=== PATIENT | female | born 1950 | race Caucasian/White ===

== ENCOUNTER 2021-09-28 05:04 | Observation (INO) ==
--- NOTE | 2021-08-25 15:35 | PAT Medication Instructions ---
Medication Instructions Date of Service August 25, 2021 Home Medications aspirin 81 mg capsule 81 mg PO QAM calcium 500 mg tablet 500 mg PO QAM carvedilol 25 mg tablet 25 mg PO BID escitalopram oxalate 10 mg tablet 10 mg PO QAM levothyroxine 100 mcg tablet (Levoxyl) 100 mcg PO QAM magnesium 500 mg tablet 15 mg PO QAM pantoprazole 40 mg tablet,delayed release 40 mg PO BID potassium 99 mg tablet 99 mg PO QAM spironolactone 25 mg tablet 25 mg PO QAM valsartan 320 mg-hydrochlorothiazide 12.5 mg tablet 1 tab PO QAM DO NOT take the morning of surgery calcium 500 mg tablet 500 mg PO QAM magnesium 500 mg tablet 15 mg PO QAM potassium 99 mg tablet 99 mg PO QAM spironolactone 25 mg tablet 25 mg PO QAM valsartan 320 mg-hydrochlorothiazide 12.5 mg tablet 1 tab PO QAM Take morning of surgery With a small sip of water, OTHERWISE NOTHING TO EAT OR DRINK AFTER MIDNIGHT: aspirin 81 mg capsule 81 mg PO QAM (unless surgeon directed otherwise) carvedilol 25 mg tablet 25 mg PO BID escitalopram oxalate 10 mg tablet 10 mg PO QAM levothyroxine 100 mcg tablet (Levoxyl) 100 mcg PO QAM pantoprazole 40 mg tablet,delayed release 40 mg PO BID Take evening before surgery carvedilol 25 mg tablet 25 mg PO BID pantoprazole 40 mg tablet,delayed release 40 mg PO BID Other Notes If you have any questions please call us at [phone] or [phone] or [phone] or [phone]
--- NOTE | 2021-08-30 14:59 | Anesthesiology Consultation ---
Date of Service August 30, 2021 Assessment & Plan (1) Encounter for pre-operative examination: - COVID screening: Per assessment on 08/30: No known COVID-19 positive contacts or current COVID-19 related symptoms. Travel screen negative. Patient vaccinated. Surgeon arranging preop COVID testing. Awaiting results. - Chlorhexidine allergy: hives. No wipes given at PAT visit* Chart Review Chart Review: Acceptable Risk for Surgery and Patient seen in Pre Admission Testing Teaching & Discussion Pre-Anesthesia Teaching/Discussion Notes: Instructed NPO after midnight before surgery,except medications with 15 cc of water. Medication instructions provided according to the [facility] guidelines. History Surgery Operation Date: 09/28/21 16:10 Proposed Procedures p Right Total Knee Arthroplasty - Harshil Colunga DO Height/Weight Height: 4 ft 11 in Weight: 96.7 kg Allergies Allergy/AdvReac Type Severity Reaction Status Date / Time benzonatate Allergy Anaphylaxis Verified 08/25/21 13:49 [From Flor Panchal] chlorhexidine Allergy Hives Verified 08/25/21 13:49 Penicillins Allergy hives, Verified 08/25/21 13:49 difficulty breathing morphine AdvReac Vomiting Verified 08/25/21 13:49 Medications Home Medications Medication Instructions Recorded Confirmed Last Taken aspirin 81 mg capsule 81 mg PO QAM 08/25/21 08/25/21 Unknown calcium 500 mg tablet 500 mg PO QAM 08/25/21 08/25/21 Unknown carvedilol 25 mg tablet 25 mg PO BID 08/25/21 08/25/21 Unknown escitalopram oxalate 10 mg tablet 10 mg PO QAM 08/25/21 08/25/21 Unknown levothyroxine 100 mcg tablet 100 mcg PO QAM 08/25/21 08/25/21 Unknown (Levoxyl) magnesium 500 mg tablet 15 mg PO QAM 08/25/21 08/25/21 Unknown pantoprazole 40 mg tablet,delayed 40 mg PO BID 08/25/21 08/25/21 Unknown release potassium 99 mg tablet 99 mg PO QAM 08/25/21 08/25/21 Unknown spironolactone 25 mg tablet 25 mg PO QAM 08/25/21 08/25/21 Unknown valsartan 320 1 tab PO QAM 08/25/21 08/25/21 Unknown mg-hydrochlorothiazide 12.5 mg tablet Past Medical History Medical History Allergy to chlorhexidine GERD (gastroesophageal reflux disease) occasional Hearing deficit B/L FERNANDEZ Hiatal hernia HTN (hypertension) Hypothyroidism Hx hyperthyroidism s/p radiation/thyroidectomy Morbid obesity Osteoarthritis Sleep apnea CPAP (compliant) Exercise / Class Metabolic Activity III < 4 Walking/Shop/Light housework Past Family History Family History Other No family history of adverse response to anesthesia Past Surgical History Surgical History History of appendectomy History of History of cardiac catheterization 15 years ago (PH) > no stents History of carpal tunnel release of both wrists History of cataract surgery History of cervical spinal surgery ROM WNL History of cholecystectomy History of colonoscopy History of D&C History of esophageal surgery History of esophagogastroduodenoscopy (EGD) History of left knee replacement History of parathyroidectomy History of thyroidectomy History of total abdominal hysterectomy and bilateral salpingo-oophorectomy History of umbilical hernia repair Past Anesthesia History No Hx of Anesthesia Complications and No Family Hx of Anesthesia Complications History of PONV No Hx of PONV and No Hx of Motion Sickness Social History Smoking Status: Never smoker Do You Dip or Chew Tobacco: No Hx Alcohol Use: Yes alcohol intake frequency: holidays/special occasions only Hx Substance Use: No substance use type: does not use Review of Systems Patient denies chest pain, shortness of breath, fever, chills, cough, wheezing, palpitations. Physical Exam Vital Signs VITALS BP 138/82 P 79 TEMP SP02 97%RA RESP 18 PHYSICAL Full cervical extension range of motion. Full TMJ range of motion. TMD 3 finger breaths (difficult to palpate) Mallampati Score 1 Dentition: intact Lungs: clear throughout to auscultation Cardiac: regular rate and rhythm, no murmurs noted Spine: normal Carotid arteries: negative bruit Extremities: no edema Short, thick neck Lab Results Anesthesia Preop Results Results Anesthesia Widget: WBC 7.55 K/uL (4.8-10.8) 08/30/21 Hgb 13.1 g/dL (12.0-16.0) 08/30/21 Hct 40.5 % (37-47) 08/30/21 Plt 337 K/uL (130-400) 08/30/21 Na 138 mmol/L (136-145) 08/30/21 K 4.7 mmol/L (3.5-5.1) 08/30/21 Cl 102 mmol/L (98-107) 08/30/21 CO2 27 mmol/L (21-32) 08/30/21 BUN 15 mg/dl (6-23) 08/30/21 Creat 1.05 mg/dl (0.6-1.2) 08/30/21 Glucose Level 88 mg/dl (70-99(Fasting)) 08/30/21 PT 10.2 Seconds (9.0-12.0) 08/30/21 PTT 23.9 Seconds (21.0-31.0) 08/30/21 INR 1.0 (0.9-1.1) 08/30/21 HA1c 6.4 % (4.5-5.6) H 08/30/21 Urine Color Yellow 08/30/21 Urine Appearance Clear (Clear) 08/30/21 Urine pH 5.5 (4.5-7.5) 08/30/21 Urine Specific [place] 1.021 (1.000-1.030) 08/30/21 Urine Protein Negative (Negative) 08/30/21 Urine Glucose (UA) Negative (Negative) 08/30/21 Urine Ketones Negative (Negative) 08/30/21 Urine Blood Negative (Negative) 08/30/21 Urine Nitrite Negative (Negative) 08/30/21 Urine Bilirubin Negative (Negative) 08/30/21 Urine Urobilinogen Negative (Negative) 08/30/21 Urine Leukocyte Esterase 1+ (Negative) H 08/30/21 Urine WBC (Auto) 10-30 /hpf (0-5) H 08/30/21 Urine RBC (Auto) 0-4 /hpf (0-4) 08/30/21 Urine Hyaline Casts (Auto) 1-5 /lpf (0-5) 08/30/21 Urine Epithelial Cells (Auto) >30 /lpf (0-5) H 08/30/21 Urine Bacteria (Auto) Negative (Negative) 08/30/21 Blood Type O Positive 08/30/21 Antibody Screen NEGATIVE 08/30/21 Testing Electrocardiogram Date: 08/30/21 NSR at 66bpm. NS ST/TWA. Chest X-Ray Date: 08/30/21 FINDINGS: Lung volumes are normal. Incidental note is made of an anterior cervical spine fusion. Moderate cardiomegaly is present. There is no evidence for pulmonary edema. No consolidation to suggest pneumonia. Mild elevation/eventration of the right hemidiaphragm is present IMPRESSION: No acute cardiopulmonary findings. Cardiomegaly. Echocardiogram Date: 07/04/21 EF 60%. No regional wall motion abnormality. Mild LAD. No significant valvular disease. Stress Test Date: 01/06/20 Type: nuclear Myocardial perfusion imaging: Normal. No evidence of ischemia or prior infarction. LVEF 75%. LV global systolic function is depressed. Other Testing Six minute walk test (07/05/21) 255 meters walked (walked continuously on RA) Pre test: HR 67, SaO2 95%, BP 156/70, Dyspnea 2 (scale 0-10) Post test: HR 66, SaO2 96%, BP 148/79, Dyspnea 2
--- NOTE | 2021-09-12 13:57 | History & Physical Report ---
Date of Service September 12, 2021 date of surgery: 09/28/21 Procedure: Right Total Knee Arthroplasty Surgeon: Harshil Colunga Assessment & Plan (1) Arthritis of right knee: Plan: Further care discussed with patient and at this point in time has failed conservative measures and would like to proceed with a right total knee replacement. Plan on discharge will be home with home health physical therapy. DVT prophylaxiswith TEDs, SCDs and will also place on aspirin 81 mg p.o. b.i.d. for a month postop. Patient will have follow up appointment in our office two weeks post op for staple/suture removal and re-evaluation. Patient otherwise has no other questions or concerns. The risks and benefits have been discussed including, but not limited to, risk of infection, nerve injury, stiffness, loss of motion, failure to improve, etc. Reasonable outcomes and options of treatment were discussed. An explanation of appropriate alternatives to the procedure that may be advantageous were discussed and their risks and benefits, as well as the risks and benefits of not proceeding with treatment. I offered to answer any additional inquiries concerning the treatment involved. All the patient's questions were answered. The patient is agreeable, understanding of the treatment plan and alternatives, and wishes to proceed with the treatment plan. History of Present Illness Chief Complaint: Right knee pain Primary Care Provider: NO PCP Ninfa is a 70 year old female who complains of right knee pain, presents for pre-op evaluation prior to a Right total knee replacement. she complains of pain and decreased range of motion. Currently the patient states that the symptoms are moderate-severe and rated as 6/10. Her pain is described as aching, sharp and throbbing and occurs continuously. The symptoms are aggravated by ascending stairs, daily activities, first steps while awake walking. Prior NSAIDs include Aleve and IBU. she had prior viscosupplementation injection without much relief. Allergies Allergy/AdvReac Type Severity Reaction Status Date / Time benzonatate Allergy Anaphylaxis Verified 08/25/21 13:49 [From Flor Panchal] chlorhexidine Allergy Hives Verified 08/25/21 13:49 Penicillins Allergy hives, Verified 08/25/21 13:49 difficulty breathing morphine AdvReac Vomiting Verified 08/25/21 13:49 Home Medications Medication Instructions Recorded Confirmed Type aspirin 81 mg capsule 81 mg PO QAM 08/25/21 08/25/21 History calcium 500 mg tablet 500 mg PO QAM 08/25/21 08/25/21 History carvedilol 25 mg tablet 25 mg PO BID 08/25/21 08/25/21 History escitalopram oxalate 10 mg tablet 10 mg PO QAM 08/25/21 08/25/21 History levothyroxine 100 mcg tablet 100 mcg PO QAM 08/25/21 08/25/21 History (Levoxyl) magnesium 500 mg tablet 15 mg PO QAM 08/25/21 08/25/21 History pantoprazole 40 mg tablet,delayed 40 mg PO BID 08/25/21 08/25/21 History release potassium 99 mg tablet 99 mg PO QAM 08/25/21 08/25/21 History spironolactone 25 mg tablet 25 mg PO QAM 08/25/21 08/25/21 History valsartan 320 1 tab PO QAM 08/25/21 08/25/21 History mg-hydrochlorothiazide 12.5 mg tablet Past Med/Surg History Medical History Allergy to chlorhexidine GERD (gastroesophageal reflux disease) occasional Hearing deficit B/L FERNANDEZ Hiatal hernia HTN (hypertension) Hypothyroidism Hx hyperthyroidism s/p radiation/thyroidectomy Morbid obesity Osteoarthritis Sleep apnea CPAP (compliant) Surgical History History of appendectomy History of History of cardiac catheterization 15 years ago (PH) > no stents History of carpal tunnel release of both wrists History of cataract surgery History of cervical spinal surgery ROM WNL History of cholecystectomy History of colonoscopy History of D&C History of esophageal surgery History of esophagogastroduodenoscopy (EGD) History of left knee replacement History of parathyroidectomy History of thyroidectomy History of total abdominal hysterectomy and bilateral salpingo-oophorectomy History of umbilical hernia repair Family History Other No family history of adverse response to anesthesia Social History Smoking Status: Never smoker Second Hand Exposure: No; Hx Alcohol Use: Yes Hx Substance Use: No Preferred Language: Panamanian Communication Ability: Effective Biophysics Scientist Required: No Beliefs That Will Affect Care: None Current Living Situation: Spouse Feels Safe at Home: Yes Assistive Devices: Glasses and Hearing Aid - Bilateral Review of Systems Review of Systems: All systems reviewed & are unremarkable except as noted in HPI & below Constitutional: no fever, no chills and no sweats Respiratory: no cough and no dyspnea Cardiovascular: no chest pain, no dyspnea and no orthopnea Gastrointestinal: no abdominal pain, no nausea and no vomiting Musculoskeletal: as per Subjective / HPI Physical Exam Physical Exam: HT: 4ft 11in WT: 96.7kg Constitutional: WD/WN, vitals as above no acute distress Respiratory: normal respiratory effort, lungs clear to auscultation no respiratory distress, no labored breathing and does not use accessory muscles Cardiovascular: RRR, no murmur, no edema Gastrointestinal (Abdomen): normal bowel sounds, soft, nontender, no hepatosplenomegaly Musculoskeletal: Knee: + knee abnormal to inspection (RIGHT KNEE: ), + effusion (+1 effusion), + limited ROM of knee (ROM 0/3/110), + knee ROM with crepitation, + joint line tenderness (medial joint line) and + Blake's sign positive; no deformity, no skin erythema, no ecchymosis, no valgus laxity, no varus laxity, anterior drawer test negative, Prabhu's sign negative and pivot shift test negative Results & Data Results & Data ([facility]) Diagnostic Findings Right Knee X-ray: Right knee series showing advanced degenerative changes to the right knee, narrowing of the medial compartment and patello-femoral joint with patellar spurring noted, findings showing joint space narrowing of the medial compartment and patello-femoral joint, osteophyte formation and subchondral sclerosis noted. overall varus alignment. no acute bony pathology noted.
[~2021-09-28 05:04] MED LIST: ALLERGY Noted to ORDERED Medication SCH
[2021-09-28] MEDS ORDERED: FAMOTIDINE 20 MG TAB PO SCH (06:00)
[2021-09-28] MEDS ORDERED: CeleBREX 200 MG CAP PO SCH (06:00)
[2021-09-28] MEDS ORDERED: GABAPENTIN 300 MG CAP PO SCH (06:00)
[2021-09-28] MEDS ORDERED: METOCLOPRAMIDE HCL 10 MG TABLET PO SCH (06:00)
[2021-09-28] MEDS ORDERED: ACETAMINOPHEN 500 MG TAB PO SCH (06:00)
[2021-09-28] MEDS ORDERED: ROPIVACAINE 0.5% HCL/PF 150 MG, BUPIVACAINE 0.75% MPF 20 ML, EPINEPHrine 30MG/30ML (OR ... INFIL SCH (06:00)
[2021-09-28] MEDS ORDERED: dexAMETHasone 4 MG TAB PO SCH (06:00)
[2021-09-28] MEDS ORDERED: ceFAZolin 2000MG 2,000 MG/15 ML SYR IV SCH (06:00)
[2021-09-28] MEDS ORDERED: LR 500ML BOLUS, THEN 15ML/HR IV SCH (06:00)
[2021-09-28] MEDS ORDERED: TRANEXAMIC ACID 1,000 MG **IV Pre-op IV SCH (06:00)
[2021-09-28] MEDS ORDERED: TRANEXAMIC ACID 1,000 MG **IV Intra-op IV SCH (06:00)
[2021-09-28] MEDS ORDERED: ROPIVACAINE 0.5% 5 MG/ML 30 ML VIAL ONE (06:19)
[2021-09-28] MEDS ORDERED: EPINEPHrine INJ 1 MG/ML AMP ONE (06:19)
[2021-09-28] MEDS ORDERED: BUPIVACAINE 0.5 % 5 MG/1 ML PF 10ML VIAL ONE (06:19)
[2021-09-28] MEDS ORDERED: MIDAZOLAM HCL 1 MG/ML 2ML VIAL ONE ×2 (06:39)
[2021-09-28] MEDS ORDERED: fentaNYL citrate 100 MCG/2 ML VIAL ONE (06:39)
[2021-09-28] MEDS ORDERED: ORTHO JOINT ANESTHETIC ONE (06:41)
[2021-09-28] MEDS ORDERED: CLINDAMYCIN 600 MG/D5W 50 ML BAG IV ONE (07:04)
--- NOTE | 2021-09-28 07:05 | History & Physical Bridge Note ---
Date of Service September 28, 2021 History & Physical Bridge Note I have examined the patient, reviewed the History & Physical and in the interval since the performance of the History & Physical I have noted the following changes of clinical significance: no changes noted
[2021-09-28] MEDS ORDERED: ePHEDrine sulfate 50 MG/ML SYR ONE (07:43)
[2021-09-28] MEDS ORDERED: PROPOFOL IV EMULSION 10 MG/ML 20 ML VIAL IV ONE (07:43)
[2021-09-28] MEDS ORDERED: ePHEDrine sulfate 50 MG/ML AMP IV PRN (08:30)
[2021-09-28] MEDS ORDERED: ATROPINE SULFATE 0.1 MG/ML 10ML SYR IV PRN (08:30)
--- NOTE | 2021-09-28 08:37 | Operative Report ---
Post Operative Report Pre & Post Diagnosis Operation Date: 09/28/21 07:00 Pre-Op Diagnosis: Right Knee Osteoarthritis morbid obesity Post-Op Diagnosis: Right Knee Osteoarthritis Morbid obesity I identified the patient and participated in the time-out.: Yes Procedure Operation Date: 09/28/21 07:00 Actual Procedures p Right Total Knee Arthroplasty(Right) utilizing [employer] journey 2 patient matched total knee arthroplasty size 3 femur to tibia 13 polythirty 2 oval patella Harshil Colunga DO Surgeon Harshil Colunga DO Pipe Machine Operator Rob KNOTT Estimated Blood Loss 5 Findings Consistent with Post-Op Diagnosis Patient presents with severe end-stage tricompartmental degenerative joint disease nonresponse to conservative management patient presented with a morbidly obese obesity with severe end-stage varus DJD with subchondral bone loss subchondral cystic changes eburnated [id number] with a moderate to large effusion Specimens Bone and cartilage Drains Medium bore Hemovac Anesthesia Type MAC Spinal Regional Complications none Disposition Accompanied Patient To Recovery: No Disposition: Recovery Room Indications Patient presents with severe end-stage tricompartmental degenerative joint disease with the above intraoperative findings noted patient is failed attempted conservative management physical therapy anti-inflammatories relative rest activity modification corticosteroid injection weight loss Description of Procedure After proper prepping and draping of the Right lower extremity anterior midline incision was made over the region of the extensor extensor mechanism after meticulous hemostasis was obtained and maintained in subcutaneous tissues a medial parapatellar incision was made The patella was subluxed lateralward the medial lateral gutter were cleaned from any hypertrophic synovitis and scar tissue of the distal femoral block was placed and the distal femoral osteotomy cut was made subsequently the chamfers anterior and posterior osteotomy cuts were made utilizing the 4-in-1 block the tibia was subsequently subluxed anteriorward medial and ateral meniscal remnants were excised in their entirety remnants of the anterior and posterior cruciate ligaments were excised in their entirety excellent exposure of the proximal tibia was obtained the tibial osteotomy guide was placed on the proximal tibial osteotomy cut was made once again the knee was irrigated with copious amounts of sterile saline solution the patella was subsequently everted lateralward thickened scar tissue around the patella was removed the patella was subsequently cut utilizing a freehand technique and was drilled prepared for final preparation and placement of patella socially flexion-extension gaps were checked and the equal and symmetric trials were placed to the appropriate femoral and tibial trials with poly-spacer being placed for equal flexion and extension gaps and full range of motion including extension to 0 and flexion to 140 the trial components after having been taken to recovery range of motion was subsequently removed meticulous hemostasis was obtained and maintained subsequently a knee block injection of joint cocktail including ropivacaine 0.5% 150 mg. Bupivacaine 0.5% epinephrine 1-200,030 mL's toradol 30 mg dexamethasone 4 mg ketamine 10 mg clonidine 100 micrograms normal saline solution 30 mg was infiltrated into the soft tissues of the posterior knee medial lateral gutters and periosteal synovium special attention was paid to protect neurovascular structures at all times subsequently trial components having been removed the knee was irrigated with sterile saline solution. debris was removed the proximal tibia was subsequently prepared and was made ready for the placement of the tibial component tibial component was also cemented and tamped into position the femoral component was subsequently placed and cemented in the position the patellar component was subsequently cemented in position because hemostasis once again obtained and maintained wound having been thoroughly irrigated with debridement and debridement lavage was performed as well as a medial parapatellar incision closed with #1 Vicryl in interrupted fashion subcutaneous was closed with #2 Vicryl skin was closed with skin clips. PA-C was necessary for prepping and drapping as well as wound closure of deep fascia Sub cutaneous tissue and skin and was necessary for the case. A sterile compressive dressing was placed patient was taken to recovery in stable condition of report dictated by Keanu I attest to the content of the Intraoperative Record and any orders documented therein. Any exceptions are noted below.Due to the complex nature of the procedure, the entire surgery was performed with the operational assistance of Rob Rg patient is 96.2 kg with a BMI of 42.8 The patient's habitus did contribute to significant technical difficulty requiring extra time. Additional help was necessary in order to position the patient safely. The use of specialized (longer, deeper) retractors and/or instruments were needed. Due to this, the procedure took 15 minutes longer than the standard total knee arthroplasty.". The assistant to the dean, under direct supervision, was involved in the actual performance of all aspects of the surgical procedure including hemostasis, tissue retraction and incision, instrument management, patient positioning, and wound closure. I attest to the content of the Intraoperative Record and any orders documented therein. Any exceptions are noted below.
--- NOTE | 2021-09-28 10:02 | XRay Report ---
TWO VIEWS RIGHT KNEE CLINICAL HISTORY: Postoperative examination. FINDINGS: AP and crosstable lateral portable views of the right knee are obtained. A right knee arthr oplasty is in near anatomic alignment. There has been undersurface remodeling of the patella. No acut e fracture is seen. There are expected postoperative changes around the knee including a surgical clover in, soft tissue edema, and subcutaneous gas. IMPRESSION: Expected postoperative changes status post right knee arthroplasty. No acute fracture is seen. ACT 112: Negative or not required by law. Electronically signed by: Aurelio Lee M.D. 09/28/2021 10:00 AM
--- NOTE | 2021-09-28 10:05 | Anesthesiology Progress Note ---
Date of Service September 28, 2021 Anesthesia Post Procedure Vital Signs Vital Signs: Temp Pulse Pulse Resp BP Pulse Ox 09/28/21 10:00 55 L 16 115/76 95 09/28/21 09:50 62 17 135/83 97 09/28/21 09:40 62 14 133/72 100 09/28/21 09:30 59 L 17 117/78 100 09/28/21 09:20 36.7 C 60 16 150/82 H 99 09/28/21 05:41 36.8 C 56 L 18 140/72 96 Transfer of Care Handoff Completed per policy Notes Mental Status: alert / awake / arousable Patient Amnestic to Procedure: Yes Nausea / Vomiting: adequately controlled Pain: adequately controlled Airway Patency, RR, SpO2: stable & adequate BP & HR: stable & adequate Hydration State: stable & adequate Neuraxial Anesthesia: was administered and sensory block is resolving Anesthetic Complications: no major complications apparent
[2021-09-28] MEDS ORDERED: ONDANSETRON INJ 2 MG/ML 2 ML VIAL IV PRN (11:22)
[2021-09-28] MEDS ORDERED: diphenhydrAMINE 50 MG/ML VIAL IV PRN (11:22)
[2021-09-28] MEDS ORDERED: HYDROmorphone INJ 0.5 MG/0.5 ML SYR IV PRN (11:22)
[2021-09-28] MEDS ORDERED: NALOXONE HCL 0.4 MG/1 ML VIAL/CARP IV PRN (11:22)
[2021-09-28] MEDS ORDERED: bisacodyL 10 MG SUPP PR PRN (11:22)
[2021-09-28] MEDS ORDERED: MAGNESIUM HYDROXIDE SUSP 30 ML UDC PO PRN (11:22)
[2021-09-28] MEDS: oxyCODONE HCL IR 5 MG TAB (IMMEDIATE RELEASE) PO PRN ×2 (12:23→20:01)
--- NOTE | 2021-09-28 13:24 | Hospitalist Progress Note ---
Date of Service September 28, 2021 Assessment & Plan (1) HTN (hypertension): Plan: BP reasonable, asymptomatic. will hold valsartan and HCTZ pending clear stability in volume status -- if BP stays reasonable (not low) and Hgb, BMP reasonable w AM labs - then can start tomorrow. (2) Sleep apnea: Plan: CPAP from home (3) Hypothyroidism: Plan: home dose of synthroid (4) DVT prophylaxis: Plan: per orthopedics (asa BID, SCDs) (5) Morbid obesity: Plan: w BMI 42.8 - likely contributory to DJD leading to TKA; hopefully with improved pain and mobility, she will be able to affect positive change in this regard. Admission and Anticipated Discharge Date Admission Date: September 28, 2021 Subjective seen post op consult for med management, s/p R TKA. feeling pretty good overall. a little bit of leg discomfort "as things are waking up" but no other complaints. being instructed on incentive spirometer as i enter the room. no cp no sob. no other complaints at all. bringing her CPAP device in. Review of Systems Review of Systems: All systems reviewed & are unremarkable except as noted in HPI & below Physical Exam Physical Exam: gen aaox3 pleasant nad heent nc at mmm cardio reg no r/m/g lungs cta b/l no r/r/w good effort skin no rashes no pallor or icterus abd soft nd nt no guarding/rebound ext no c/c/e no calf tenderness SCDs in place R leg wrapped, distally n/v intact. cn 2-12 grossly intact gross motor/sensory intact. good recent and remote recall normal mood and affect good judgement and insight. Results & Data Results & Data ([facility]) Vital Signs (Past 12 Hours) Vital Signs Temp Pulse Pulse Resp BP Pulse Ox 09/28/21 12:57 98.4 F 67 18 131/73 93 09/28/21 12:10 73 20 115/78 92 09/28/21 11:40 61 15 133/76 91 09/28/21 11:10 60 15 124/62 92 09/28/21 10:55 59 L 14 115/63 93 09/28/21 10:40 62 15 126/72 92 09/28/21 10:25 58 L 14 140/67 93 09/28/21 10:10 97.9 F 68 18 124/62 92 09/28/21 10:00 55 L 16 115/76 95 09/28/21 09:50 62 17 135/83 97 09/28/21 09:40 62 14 133/72 100 09/28/21 09:30 59 L 17 117/78 100 09/28/21 09:20 98.1 F 60 16 150/82 H 99 09/28/21 05:41 98.2 F 56 L 18 140/72 96 PG Care Time/CCT Total # of Minutes Spent Total Time Spent with Patient: Total time spent is greater than 50% in coordination of care (as documented) at patient's floor/unit and/or counseling patient: Coding Level of Care Code 84088 Subseq Hosp Care Lvl 2 Diagnoses HTN (hypertension) I10 Sleep apnea G47.30 Hypothyroidism E03.9 DVT prophylaxis Z29.9 Morbid obesity E66.01
[2021-09-28] MEDS: SODIUM CHLORIDE 0.9% 1000ML 1,000 ML IV SCH (13:27)
[2021-09-28] MEDS: ACETAMINOPHEN 500 MG TAB PO SCH ×2 (15:08→22:46)
[2021-09-28] MEDS: CLINDAMYCIN 600 MG in DEXTROSE 5% 50 ML IV SCH (19:56)
[2021-09-28] MEDS: DOCUSATE SODIUM 100 MG CAP PO SCH (19:58)
[2021-09-28] MEDS: ASPIRIN 81 MG ECTAB PO SCH (19:58)
[2021-09-28] MEDS: PANTOprazole 40 MG TAB PO SCH (19:58)
[2021-09-28] MEDS: carvediloL 25 MG TAB PO SCH (19:59)
[2021-09-28] MEDS ORDERED: SENNA 8.6 MG TAB PO SCH (21:00)
[2021-09-29] MEDS: CLINDAMYCIN 600 MG in DEXTROSE 5% 50 ML IV SCH (02:15)
[2021-09-29] MEDS: oxyCODONE HCL IR 5 MG TAB (IMMEDIATE RELEASE) PO PRN ×3 (02:19→14:18)
[2021-09-29] MEDS: SODIUM CHLORIDE 0.9% 1000ML 1,000 ML IV SCH (03:34)
[2021-09-29] MEDS ORDERED: CLINDAMYCIN/D5W 600 MG/50 ML BAG IV SCH (06:00)
[2021-09-29] MEDS: ACETAMINOPHEN 500 MG TAB PO SCH ×2 (06:03→14:17)
[2021-09-29] MEDS ORDERED: LEVOTHYROXINE SODIUM 100 MCG TABLET PO SCH ×2 (06:30→09:00)
[2021-09-29] MEDS: carvediloL 25 MG TAB PO SCH (07:38)
[2021-09-29] MEDS: DOCUSATE SODIUM 100 MG CAP PO SCH (07:40)
[2021-09-29] MEDS: PANTOprazole 40 MG TAB PO SCH (07:40)
[2021-09-29] MEDS: ASPIRIN 81 MG ECTAB PO SCH (07:40)
[2021-09-29] MEDS ORDERED: ESCITALOPRAM OXALATE 10 MG TAB PO SCH (09:00)
[2021-09-29] MEDS ORDERED: MAGNESIUM OXIDE 400 MG TAB PO SCH (09:00)
[2021-09-29] MEDS ORDERED: CALCIUM CARBONATE 1250MG TAB PO SCH (09:00)
[2021-09-29] MEDS ORDERED: VALSARTAN 80 MG TAB PO SCH (09:00)
[2021-09-29] MEDS ORDERED: POTASSIUM CHLORIDE 10 MEQ TABCR PO SCH (09:00)
[2021-09-29] MEDS ORDERED: hydroCHLOROthiazide 25 MG TAB PO SCH (09:00)
[2021-09-29] MEDS ORDERED: MULTIVITAMIN TAB PO SCH (09:00)
--- NOTE | 2021-09-29 09:01 | Orthopedic Progress Note ---
Date of Service September 29, 2021 Assessment & Plan (1) Arthritis of right knee: Plan: Postop day 1 PT/OT protocols. Weightbearing as tolerated. DVT prophylaxis-aspirin p.o. twice daily, SCDs, ROSE bennett. Pain management as written. Labs pending DC planning-patient is planning for home health services upon discharge. We will recheck on the patient later this morning to see how well her progress was with physical therapy and plan for possible discharge. Admission and Anticipated Discharge Date Admission Date: September 28, 2021 Subjective Postop day 1 Patient is lying in bed awake and alert. No complaints this morning. Pain is controlled. She states that she has not had her lab draws yet. Denies shortness of breath, chest pain, lightheadedness. She states she is hoping to go home today. Physical Exam Physical Exam: Dressings are clean, dry, and intact. Calves are soft and nontender. Neurovascular intact. Toes are mobile. She has good dorsiflexion and plantarflexion of the right foot and ankle. Minimal drainage from her Hemovac. Results & Data ([facility]) Vital Signs (Past 12 Hours) Vital Signs Temp Pulse Resp BP Pulse Ox 09/29/21 07:34 36.7 C 68 20 117/76 94 09/29/21 02:17 36.5 C 81 19 130/75 93 09/28/21 22:10 36.5 C 72 16 143/81 H 94
--- NOTE | 2021-09-29 09:01 | Hospitalist Progress Note ---
Date of Service September 29, 2021 Assessment & Plan (1) History of total knee arthroplasty: Plan: S/p right TKA on 09/[address] Colunga No perioperative complications Spinal anesthesia utilized. At this point, patient is meeting her therapy goals. Her pain is controlled and she is tolerating her pain medication without ill effects. Would advise continued incentive spirometry, PT/OT, continue pain management, and DVT prophylaxis X 14 days (drug, dose, duration at the discretion of primary team) (2) HTN (hypertension): Plan: BP currently 103/66 Diovan/HCTZ held today given spinal anesthesia utilized and risk of KATHY/hypotension Creatinine is slightly up to 1.2 (again received Decadron and Celebrex preoperatively) -- Would advise patient hold her Diovan/HCTZ today and tomorrow. Push fluids. Resume on Sunday (3) Sleep apnea: Plan: Continue utilization of CPAP (4) Hypothyroidism: Plan: Continue Synthroid as prior to hospitalization (5) DVT prophylaxis: Plan: Per primary team. Recommend DVT prophylaxis X 14 days (6) Morbid obesity: Plan: w BMI 42.8 - likely contributory to DJD leading to TKA; hopefully with improved pain and mobility, she will be able to affect positive change in this regard. Plan: At this point, patient is medically and hemodynamically stable. We will sign off but do not hesitate to reconsult should a problem arise. Thank you for allowing us to participate in the care of this patient Admission and Anticipated Discharge Date Admission Date: September 28, 2021 Subjective Patient seen on daily rounds today. She is POD #1 s/p right TKA. Pain is adequately controlled. Tolerating pain medication without ill effects. Meeting her therapy goals and has since been cleared for discharge by orthopedics. BP currently stable. Her Diovan HCTZ held this morning. WBC count elevated at 14 K today but did receive intraoperative steroids. Creatinine slightly elevated at 1.2 today but received perioperative Decadron/Celebrex. Review of Systems Review of Systems: All systems reviewed and are unremarkable except as noted in HPI and below Denies fevers, chills, headache, nasal congestion, sore throat, cough, chest pain, shortness of breath, palpitations, orthopnea, PND, abdominal pain, nausea, vomiting, diarrhea, constipation, dysuria, hematuria, frequency, back pain, joint pain or swelling, easy bruising or bleeding, skin lesions or rashes. Physical Exam Physical Exam: General: Resting comfortably in her bedside chair. NAD. HEENT: Head is AT/NC. Buccal mucosa is moist and pink Neck: No JVD. Negative hepatojugular reflex Cardiac: RRR without M/G/R Lungs: CTA without W/R/R Abdomen: Normoactive X4. Soft and nontender in all quadrants. Extremities: Demetrio wrap with beltran dressing and indwelling Hemovac to right knee. Distal pulses to the bilateral lower extremities are intact and symmetrical. Capillary refill +2. Negative Homans' sign. No calf tenderness. Neuro: A&O X4. Cranial nerves II through XII are grossly intact. No focal neuro deficits Skin: No obvious skin lesions or rashes Psych: Appropriate affect. Pleasant and cooperative Results & Data Results & Data ([facility]) Vital Signs (Past 12 Hours) Vital Signs Temp Pulse Resp BP Pulse Ox 09/29/21 07:34 36.7 C 68 20 117/76 94 09/29/21 02:17 36.5 C 81 19 130/75 93 09/28/21 22:10 36.5 C 72 16 143/81 H 94 Laboratory Results 09/29/21 09:10 09/29/21 09:10 PG Care Time/CCT Total # of Minutes Spent Total Time Spent with Patient: Total time spent is greater than 50% in coordination of care (as documented) at patient's floor/unit and/or counseling patient: Coding Level of Care Code 41556 Inpt Consult Level 4 Diagnoses HTN (hypertension) I10 Sleep apnea G47.30 Hypothyroidism E03.9 DVT prophylaxis Z29.9 Morbid obesity E66.01 History of total knee arthroplasty Z96.659
[2021-09-29 09:49] LABS: Hematocrit (blood only) 32.9 % (37-47); Mean Corpuscular Hemoglobin 30.2 pg (25-34); Mean Corpuscular Hgb Conc 33.4 g/dL (32-36); Mean Corpuscular Volume 90.4 fL (80-100); RDW Coefficient of Variation 13.8 % (11.5-14.5); RDW Standard Deviation 46.1 fL (36.4-46.3); Red Blood Count 3.64 M/uL (4.2-5.4); White Blood Count 14.06 K/uL (4.8-10.8)
[2021-09-29 09:50] LABS: Mean Platelet Volume 9.8 fL (7.4-10.4); Platelet Count 255 K/uL (130-400)
[2021-09-29 10:16] LABS: BUN Creatinine Ratio 20.8 (10-20); Calcium 7.7 mg/dl (8.5-10.1); Creatinine Clr Calc Pharmacy 43.2 ml/min; Est GFR (African American) 50.8 ml/min; Est GFR (Non-African American) 43.9 ml/min; Potassium 4.7 mmol/L (3.5-5.1)
[2021-09-30] MEDS ORDERED: LEVOTHYROXINE SODIUM 100 MCG TABLET PO SCH (06:30)
== END 2021-09-29 14:45 | disposition home health service (06) ==
LOC: PACUINP 05:04 → ASU 05:04 → 3E 12:57

== ENCOUNTER 2024-07-14 07:11 | Inpatient (IN) ==
--- NOTE | 2024-06-18 12:20 | PAT Medication Instructions ---
Medication Instructions Date of Service June 18, 2024 Home Medications aspirin 81 mg capsule 81 mg PO QAM calcium 500 mg tablet 500 mg PO QAM carvedilol 25 mg tablet 25 mg PO BID escitalopram oxalate 10 mg tablet 10 mg PO QAM levothyroxine 100 mcg tablet (Levoxyl) 100 mcg PO QAM magnesium 500 mg tablet 500 mg PO QAM pantoprazole 40 mg tablet,delayed release 40 mg PO BID potassium 99 mg tablet 99 mg PO QAM spironolactone 25 mg tablet 25 mg PO QAM valsartan 320 mg-hydrochlorothiazide 12.5 mg tablet 1 tab PO QAM metformin 500 mg tablet 500 mg PO QAM MEDICATION INSTRUCTIONS: ASK your prescriber and surgeon aspirin 81 mg capsule 81 mg PO QAM DO NOT take the morning of surgery magnesium 500 mg tablet 500 mg PO QAM potassium 99 mg tablet 99 mg PO QAM calcium 500 mg tablet 500 mg PO QAM spironolactone 25 mg tablet 25 mg PO QAM valsartan 320 mg-hydrochlorothiazide 12.5 mg tablet 1 tab PO QAM metformin 500 mg tablet 500 mg PO QAM Take morning of surgery With a small sip of water, OTHERWISE NOTHING TO EAT OR DRINK AFTER MIDNIGHT: carvedilol 25 mg tablet 25 mg PO BID pantoprazole 40 mg tablet,delayed release 40 mg PO BID escitalopram oxalate 10 mg tablet 10 mg PO QAM levothyroxine 100 mcg tablet (Levoxyl) 100 mcg PO QAM Take evening before surgery carvedilol 25 mg tablet 25 mg PO BID pantoprazole 40 mg tablet,delayed release 40 mg PO BID Other Notes If you have any questions please call us at [phone] or [phone] or [phone] or [phone]
--- NOTE | 2024-06-30 14:33 | Anesthesiology Consultation ---
Date of Service June 30, 2024 Assessment & Plan (1) Encounter for pre-operative examination: Plan - awaiting surgeon ordered medical clearance, Nury KNOTT. - check BSG am DOS. - chlorhexidine allergy: wipes not provided at PAT visit. Chart Review Chart Review: Pending: Refer to Additional Notes / Consult section and Patient seen in Pre Admission Testing Teaching & Discussion Pre-Anesthesia Teaching/Discussion Notes: Instructed NPO after midnight before surgery, except medications with 15 cc of water. Medication instructions provided according to the [facility] guidelines. History Surgery Operation Date: 07/14/24 10:05 Proposed Procedures p L3-S1 Decompression and Fusion, Spinal Cord Monitoring - Caleb Gudino, Height/Weight Height: 4 ft 11 in Weight: 92.4 kg Allergies Allergy/AdvReac Type Severity Reaction Status Date / Time benzonatate Allergy Severe Anaphylaxis Verified 06/18/24 09:38 [From Flor Panchal] latex Allergy Severe blistering, Verified 06/30/24 14:35 rash Penicillins Allergy Severe hives, Verified 06/18/24 09:38 difficulty breathing chlorhexidine Allergy Intermediate Hives Verified 06/18/24 09:38 morphine AdvReac Intermediate Vomiting Verified 06/18/24 09:38 Medications Home Medications Medication Instructions Recorded Confirmed Last Taken aspirin 81 mg capsule 81 mg PO QAM 08/25/21 06/18/24 09/21/21 calcium 500 mg tablet 500 mg PO QAM 08/25/21 06/18/24 Unknown carvedilol 25 mg tablet 25 mg PO BID 08/25/21 06/18/24 09/27/21 21:00 escitalopram oxalate 10 mg tablet 10 mg PO QAM 08/25/21 06/18/24 09/28/21 02:30 levothyroxine 100 mcg tablet 100 mcg PO QAM 08/25/21 06/18/24 09/28/21 02:30 (Levoxyl) magnesium 500 mg tablet 500 mg PO QAM 08/25/21 06/18/24 09/28/21 02:30 pantoprazole 40 mg tablet,delayed 40 mg PO BID 08/25/21 06/18/24 09/28/21 02:30 release potassium 99 mg tablet 99 mg PO QAM 08/25/21 06/18/24 09/28/21 02:30 spironolactone 25 mg tablet 25 mg PO QAM 08/25/21 06/18/24 09/28/21 02:30 valsartan 320 1 tab PO QAM 08/25/21 06/18/24 09/28/21 02:30 mg-hydrochlorothiazide 12.5 mg tablet metformin 500 mg tablet 500 mg PO QAM 06/18/24 06/18/24 Unknown atorvastatin 20 mg tablet (Lipitor) 20 mg PO QAM 06/30/24 06/30/24 Unknown multivit with minerals-iron 18 tab PO QAM 06/30/24 Unknown mg-folic ac 400 mcg-vit K 25 mcg tablet (Adults Multivitamin) tramadol 25 mg tablet 25 mg PO Q4H PRN Pain 06/30/24 06/30/24 Unknown Additional Notes: Patient was instructed to continue Lipitor and tramadol prn, cannot take multiv itamin day of surgery. This was written on provided medication instructions, she denied questions/concerns or additional medication changes. Past Medical History Medical History (Updated 06/30/24 @ 15:44 by Mary Anne Barnett PA-C) Allergy to chlorhexidine GERD (gastroesophageal reflux disease) controlled, stable per pt Hearing deficit B/L FERNANDEZ Hiatal hernia History of blood transfusion (~1974) History of esophageal dilatation early History of hyperthyroidism "had radiation tx" HTN (hypertension) controlled, stable per pt Hypothyroidism Osteoarthritis Prediabetes Sleep apnea CPAP compliant Patient denies h/o stroke, seizures, heart attack, heart failure, or blood clots/DVTs. Exercise / Class Metabolic Activity III < 4 Walking/Shop/Light housework (denies chest discomfort or shortness of breath with usual activities) Past Family History Family History Other No family history of adverse response to anesthesia Past Surgical History Surgical History (Updated 06/30/24 @ 15:44 by Mary Anne Barnett PA-C) History of appendectomy History of History of cardiac catheterization ~2007 ([facility]) > no stents History of carpal tunnel release of both wrists History of cataract surgery rt/lt History of cervical spinal surgery 2010, ROM WNL, ACDF History of cholecystectomy History of colonoscopy History of D&C History of esophagogastroduodenoscopy (EGD) History of left knee replacement History of parathyroidectomy done with thyroidectomy History of thyroidectomy 1972 History of total abdominal hysterectomy and bilateral salpingo-oophorectomy History of total right knee replacement History of umbilical hernia repair Hx of detached retina repair bilat Past Anesthesia History No Hx of Anesthesia Complications and No Family Hx of Anesthesia Complications History of PONV No Hx of PONV and No Hx of Motion Sickness Social History Smoking Status: Never smoker Do You Dip or Chew Tobacco: No Hx Alcohol Use: Yes Alcohol type: wine alcohol intake frequency: holidays/special occasions only Hx Substance Use: No substance use type: does not use Review of Systems Patient denies chest pain, shortness of breath, dyspnea on exertion, fever, chills, cough, wheezing, or palpitations. Physical Exam Vital Signs Vitals BP 125/72 P 79 TEMP 98.4 SP02 94% on RA RESP 19 Physical Patient resting comfortably in chair in no acute distress, alert and oriented, responding appropriately throughout visit Full cervical extension range of motion without pain TMD < 3 finger breadths Mallampati Score 2 Dentition: intact, denies chipped or loose teeth, caps/crowns, implants or bridges Lungs: normal respiratory effort. Good air movement, clear throughout to auscultation, no adventitious breath sounds Cardiac: regular rate and rhythm, no murmurs noted Carotid arteries: negative bruit bilat Lab Results Anesthesia Preop Results Results Anesthesia Widget: WBC 6.27 K/ul (4.8-10.8) 06/30/24 Hgb 12.2 g/dl (12.0-16.0) 06/30/24 Hct 36.5 % (37.0-47.0) L 06/30/24 Plt 329 K/uL (130-400) 06/30/24 Na 138 mmol/L (136-145) 06/30/24 K 4.0 mmol/L (3.5-5.1) 06/30/24 Cl 102 mmol/L (98-107) 06/30/24 CO2 30 mmol/L (21-32) 06/30/24 BUN 22 mg/dl (6-23) 06/30/24 Creat 1.06 mg/dl (0.6-1.2) 06/30/24 Glucose Level 149 mg/dl (70-99(Fasting)) H 06/30/24 PT 10.4 Seconds (9.0-12.0) 06/30/24 PTT 24 Seconds (21-31) 06/30/24 INR 1.0 (0.9-1.1) 06/30/24 HA1c 6.1 % (4.5-5.6) H 06/30/24 Urine Color Yellow 06/30/24 Urine Appearance Clear (Clear) 06/30/24 Urine pH 6.5 (4.5-7.5) 06/30/24 Urine Specific Blodgett 1.024 (1.000-1.030) 06/30/24 Urine Protein Negative (Negative) 06/30/24 Urine Glucose (UA) Negative (Negative) 06/30/24 Urine Ketones Negative (Negative) 06/30/24 Urine Blood Negative (Negative) 06/30/24 Urine Nitrite Negative (Negative) 06/30/24 Urine Bilirubin Negative (Negative) 06/30/24 Urine Urobilinogen Negative (Negative) 06/30/24 Urine Leukocyte Esterase 2+ (Negative) H 06/30/24 Urine WBC (Auto) 6-10 /hpf (0-5) H 06/30/24 Urine RBC (Auto) 3-5 /hpf (0-2) H 06/30/24 Urine Hyaline Casts (Auto) 0-2 /lpf (0-2) 06/30/24 Urine Epithelial Cells (Auto) 0-2 /hpf (0-2) 06/30/24 Urine Bacteria (Auto) None Seen (None Seen) 06/30/24 Blood Type O Positive 06/30/24 Antibody Screen NEGATIVE 06/30/24 Testing Electrocardiogram Date: 06/30/24 NSR, rate [address] abnormality Chest X-Ray Date: 06/30/24 FINDINGS: Stable mild cardiomegaly without pulmonary vascular congestion. No effusion, consolidation, or pneumothorax. IMPRESSION: No acute findings. Echocardiogram Date: 07/04/21 EF 60% No obvious LV RWMA Mildly dilated LA Stress Test Date: 01/06/20 MPHR 57% No evidence of ischemia or prior infarction EF 75%
[2024-07-14] MEDS: LR @ 15ML/HR IV SCH (07:35)
[2024-07-14] MEDS: LR 60ML/HR IV SCH (07:36)
[2024-07-14] MEDS: VANCOMYCIN HCL 1,500 MG in SODIUM CHLORIDE 0.9% 500 ML IV SCH (07:36)
[2024-07-14] MEDS: CeleBREX 200 MG CAP PO SCH (07:38)
[2024-07-14] MEDS: ACETAMINOPHEN 500 MG TAB PO SCH (07:38)
[2024-07-14] MEDS: GABAPENTIN 300 MG CAP PO SCH (07:38)
[2024-07-14] MEDS ORDERED: PROPOFOL IV EMULSION 10 MG/ML 20 ML VIAL IV ONE (08:16)
[2024-07-14] MEDS ORDERED: fentaNYL citrate PF 100 MCG/2 ML VIAL ONE (08:16)
[2024-07-14] MEDS ORDERED: MIDAZOLAM HCL 1 MG/ML 2ML VIAL ONE (08:16)
[2024-07-14] MEDS ORDERED: ROCURONIUM BROMIDE 10 MG/ML 5 ML VIAL IV ONE ×2 (08:16→10:03)
[2024-07-14] MEDS ORDERED: LIDOCAINE 2% 2 ML VIAL/AMP(20MG/ML) INFIL ONE (08:16)
[2024-07-14] MEDS ORDERED: ONDANSETRON INJ 2 MG/ML 2 ML VIAL ONE (08:18)
[2024-07-14] MEDS ORDERED: DEXAMETHASONE SOD INJ 4 MG/ML VIAL ONE (08:18)
--- NOTE | 2024-07-14 09:19 | History & Physical Bridge Note ---
Date of Service July 14, 2024 History & Physical Bridge Note I have examined the patient, reviewed the History & Physical and in the interval since the performance of the History & Physical I have noted the following changes of clinical significance: no changes noted
--- NOTE | 2024-07-14 09:20 | History & Physical Report ---
Date of Service July 14, 2024 Assessment & Plan (1) Multilevel lumbosacral spondylosis with radiculopathy: Plan: L3-S1 decompression and fusion History of Present Illness Chief Complaint: Back and bilateral leg pain Primary Care Provider: Nury Martel MD This is a 73-year-old female who presents for chronic persistent back and bilateral leg pain and failing course of nonoperative care is here for surgical intervention. Allergies Allergy/AdvReac Type Severity Reaction Status Date / Time benzonatate Allergy Severe Anaphylaxis Verified 07/14/24 07:38 [From Flor Panchal] latex Allergy Severe blistering, Verified 07/14/24 07:38 rash Penicillins Allergy Severe hives, Verified 07/14/24 07:38 difficulty breathing chlorhexidine Allergy Intermediate Hives Verified 07/14/24 07:38 morphine AdvReac Intermediate Vomiting Verified 07/14/24 07:38 Home Medications Medication Instructions Recorded Confirmed Type aspirin 81 mg capsule 81 mg PO QAM 08/25/21 07/14/24 History calcium 500 mg tablet 500 mg PO QAM 08/25/21 07/14/24 History carvedilol 25 mg tablet (Coreg) 25 mg PO BID 08/25/21 07/14/24 History escitalopram oxalate 10 mg tablet 10 mg PO QAM 08/25/21 07/14/24 History (Lexapro) levothyroxine 100 mcg tablet 100 mcg PO QAM 08/25/21 07/14/24 History (Levoxyl) magnesium 500 mg tablet 500 mg PO QAM 08/25/21 07/14/24 History pantoprazole 40 mg tablet,delayed 40 mg PO BID 08/25/21 07/14/24 History release (Protonix) potassium 99 mg tablet 99 mg PO QAM 08/25/21 07/14/24 History spironolactone 25 mg tablet 25 mg PO QAM 08/25/21 07/14/24 History valsartan 320 1 tab PO QAM 08/25/21 07/14/24 History mg-hydrochlorothiazide 12.5 mg tablet (Diovan HCT) metformin 500 mg tablet 500 mg PO QAM 06/18/24 07/14/24 History atorvastatin 20 mg tablet (Lipitor) 20 mg PO QAM 06/30/24 07/14/24 History multivit with minerals-iron 18 1 tab PO QAM 06/30/24 07/14/24 History mg-folic ac 400 mcg-vit K 25 mcg tablet (Adults Multivitamin) tramadol 25 mg tablet 25 mg PO Q4H PRN Pain 06/30/24 07/14/24 History acetaminophen 500 mg tablet 1,000 mg PO Q6H PRN Pain 07/14/24 07/14/24 History Past Med/Surg History Problem List (Updated 07/14/24 @ 09:20 by Caleb Gudino DO) Multilevel lumbosacral spondylosis with radiculopathy Arthritis of right knee Hypothyroidism Hx hyperthyroidism s/p radiation/thyroidectomy Encounter for pre-operative examination Morbid obesity HTN (hypertension) Sleep apnea CPAP (compliant) Medical History (Updated 07/14/24 @ 09:20 by Caleb Gudino DO) History of blood transfusion (~1974) Prediabetes Sleep apnea CPAP compliant HTN (hypertension) controlled, stable per pt Hypothyroidism History of hyperthyroidism "had radiation tx" History of esophageal dilatation early Hiatal hernia Allergy to chlorhexidine Osteoarthritis GERD (gastroesophageal reflux disease) controlled, stable per pt Hearing deficit B/L FERNANDEZ Surgical History History of total right knee replacement Hx of detached retina repair bilat History of cataract surgery rt/lt History of D&C History of History of total abdominal hysterectomy and bilateral salpingo-oophorectomy History of cholecystectomy History of appendectomy History of carpal tunnel release of both wrists History of left knee replacement History of cervical spinal surgery 2009, ROM WNL, ACDF History of esophagogastroduodenoscopy (EGD) History of colonoscopy History of umbilical hernia repair History of thyroidectomy 1972 History of parathyroidectomy done with thyroidectomy History of cardiac catheterization ~2007 ([facility]) > no stents Family History Other No family history of adverse response to anesthesia Social History (System 01/25/22 @ 15:21 by Adamaris Lombardi) Smoking Status: Never smoker Second Hand Exposure: No; Do You Dip or Chew Tobacco: No; Tobacco Cessation Education Requested by Patient: No Hx Alcohol Use: Yes Alcohol type: wine Hx Substance Use: No Preferred Language: Armenian Communication Ability: Effective Warehouse Order Picker Required: No Beliefs That Will Affect Care: None Current Living Situation: Spouse Other Information That Helps Us Care for You: No Feels Safe at Home: Yes Safety Concerns: Feels Safe At This Time Assistive Devices: CPAP, Glasses and Hearing Aid - Bilateral Physical Exam Physical Exam: Patient is alert and oriented Heart regular rhythm lungs clear Results & Data Results & Data Vital Signs (Past 12 Hours) Vital Signs Temp Pulse Resp BP Pulse Ox O2 Del Method 07/14/24 07:18 36.8 C 66 20 147/73 H 97 Room Air
[2024-07-14] MEDS ORDERED: ePHEDrine sulfate 50 MG/ML AMP IV PRN (09:21)
[2024-07-14] MEDS ORDERED: ONDANSETRON INJ 2 MG/ML 2 ML VIAL IV PRN ×2 (09:21→13:55)
[2024-07-14] MEDS ORDERED: ATROPINE SULFATE 0.1 MG/ML 10ML SYR IV PRN (09:21)
[2024-07-14] MEDS ORDERED: KETAMINE HCL 10MG/ML SYR ONE (10:03)
[2024-07-14] MEDS: BUPIVACAINE/EPINEPHRINE 0.25% 1:200,000 30 ML VIAL ONE (10:30)
[2024-07-14] MEDS: ceFAZolin 330 MG/ML 1 GM VIAL ONE (10:30)
[2024-07-14] MEDS ORDERED: ePHEDrine sulfate 50 MG/5 ML SYR ONE (10:32)
[2024-07-14] MEDS ORDERED: HYDROmorphone INJ 2 MG/ML SYR/VIAL ONE (11:06)
[2024-07-14] MEDS ORDERED: SUGAMMADEX SODIUM 200 MG/2 ML VIAL IV ONE (11:40)
--- NOTE | 2024-07-14 11:52 | Operative Report ---
Post Operative Report Pre & Post Diagnosis Operation Date: 07/14/24 10:05 Pre-Op Diagnosis: #1 lumbar spondylosis with radiculopathy #2 lumbar spondylolisthesis with radiculopathy #3 lumbar disc herniation with radiculopathy #4 lumbar spinal stenosis #5 morbid obesity Post-Op Diagnosis: Same I identified the patient and participated in the time-out.: Yes Procedure Operation Date: 07/14/24 10:05 Actual Procedures #1 lumbar decompression with bilateral medial facetectomies and foraminotomies L2-L3, L3-L4 and L4-5. #2 posterior spinal fusion L3-L4 L4-5. #3 placed posterior instrumentation using Willams L3-L5. #4 interbody fusion L3-L4 L4-5. #5 placement Spira 12 x 26 mm x 2 at L3-L4 and 14 x 26 mm x 2 at L4-L5. #6 placement locally harvested morselized autograft posterior gutters. #7 placement infuse collagen sponge combined with Koros in the posterior lateral gutters and os design interbody space. #8 application of versa wrap of the ex posed dura. Surgeon Caleb Gudino, DO Surgical Aide Nikki Stokes Estimated Blood Loss 350 Findings See Below Patient is 4 foot 11 inches tall weighing over 91 kg with a BMI in excess of 40. Patient's body was did contribute to significant technical difficulty with positioning exposure and the procedure itself. and at least 50% increased operative time. And recommending a modifier 22. Specimens None Indications This is a 73-year-old female presents publish diagnosis of failing course of nonoperative care she is here for surgical invention. Description of Procedure Patient was met with identified informed sent obtained. Patient was then taken to the operative suite underwent intubation placed in a prone position on the Robson table atop the Stephane frame. All bony promises well-padded eyes inspected to ensure no external precipice upon them. At this point the lumbar spine was prepped and draped in a normal sterile fashion. Sharp dissection with the assistance of Bovie cautery from down to and exposing the lamina transverse processes of L3 L4-5 bilaterally. From a caudal to cephalad fashion complete laminectomy of all 4 was performed including bilateral mid facetectomies and foraminotomies addressing severe neural compression. This is followed by complete laminectomy of L3. This included removal of disc herniation on the right with neural encroachment. Included bilateral medial facetectomies and foraminotomies to address all neural compression. Lastly performed partial pa rtial laminectomy of L2 with bilateral medial facetectomies addressing all subarticular stenosis. Pedicle screws were then placed in L3-L4-L5 bilaterally with assistance of fluoroscopy and purposes abdoulaye placed. By way of transforaminal approach on the right I discectomy of L4-5 was performed endplates guarded to subcortical bleeding bone and a 14 x 26 mm spiral cage filled with os design bone graft tapped in position. Then proceeded to the left transforaminal region at L4-5. Again discectomy performed. Endplates guided to subcortical main bone. A second 14 x 26 mm Spira cage filled with os design bone graft tapped in position. Then proceeded to L3-L4. By way of transfer approach on the left discectomy performed endplates guided to subcortical bleeding bone and the 12 x 26 mm Spira cage filled with o the rods were then compressed locked in final position bilaterally. The transverse processes s design me tapped in position. Then proceeded to the right transforaminal region at L3-L4. Again discectomy performed. Endplates guided to subcortical bleeding bone. A second 12 x 26 mm Spira cage filled with os designed tapped into position. Of L3 L4-5 burred to subcortical bleeding bone. Infuse collagen sponge, with Koros and local autograft placed in the posterior gutters. 15 round GM drain inserted. The incision was then closed with 1 Vicryl the fascia 2-0 Vicryl subcutaneously and 4 Monocryl for final skin closure. Steri-Strips sterile dressings placed. Versa wrap placed over the exposed dura. 15 round GM drain inserted. The incision was then closed with 1 Vicryl fascia 2-0 Vicryl subcutaneously and 4 Monocryl for final skin closure. Steri-Strips and sterile dressing placed. Patient waken taken to PACU stable condition. Please note spinal cord monitoring was utilized at the procedure no changes noted. Lastly Nikki Stokes was present at the entire surgery and while the patient positioning complex portion of the surgery and final skin closure. I attest to the content of the Intraoperative Record and any orders documented therein. Any exceptions are noted below.
[2024-07-14] MEDS: FLOSEAL HEMOSTATIC MATRIX 10ML TOP ONE (11:59)
[2024-07-14] MEDS: fentaNYL citrate PF 100 MCG/2 ML VIAL IV PRN (12:20)
[2024-07-14] MEDS: HYDROmorphone INJ 1 MG/ML SYRINGE IV PRN (13:02)
--- NOTE | 2024-07-14 13:43 | Fluoroscopy Report ---
FL lumbar spine 2-3V CLINICAL HISTORY: L3-S1 DECOMPRESSION AND FUSION COMPARISON STUDY: None FLUOROSCOPY TIME: 20 seconds FLUOROSCOPY IMAGES: 3 EXPOSURE DOSE: 19 mGy FINDINGS: Fluoroscopy was provided for lower lumbar laminectomy and instrumented fusion. IMPRESSION: Intraoperative fluoroscopy. ACT 112: Negative or not required by law. Electronically signed by: Migue Livingston M.D. 07/14/2024 1:42 PM
[2024-07-14] MEDS ORDERED: diphenhydrAMINE Capsule 25 MG CAP PO PRN (13:55)
[2024-07-14] MEDS ORDERED: ONDANSETRON 4 MG OD TAB PO PRN (13:55)
[2024-07-14] MEDS ORDERED: hydrOXYzine HCl 25 MG TAB PO PRN (13:55)
[2024-07-14] MEDS ORDERED: NALOXONE HCL 0.4 MG/1 ML VIAL/CARP IV PRN (13:55)
[2024-07-14] MEDS ORDERED: DO NOT ADMINISTER FLU VACCINE PRN (13:55)
[2024-07-14] MEDS ORDERED: FAMOTIDINE 20 MG TAB PO PRN (13:55)
[2024-07-14] MEDS ORDERED: ACETAMINOPHEN 1,000 MG/100 ML VIAL IV PRN (13:55)
[2024-07-14] MEDS ORDERED: ALUMINUM/MAGNESIUM SUSP 30 ML UDC PO PRN (13:55)
[2024-07-14] MEDS ORDERED: HYDROmorphone INJ 1 MG/ML SYRINGE IV PRN (13:55)
[2024-07-14] MEDS ORDERED: METOCLOPRAMIDE HCL INJ 5 MG/ML 2 ML VIAL IV PRN (13:55)
[2024-07-14] MEDS ORDERED: LORazepam 2 MG/1 ML VIAL IV PRN (13:55)
[2024-07-14] MEDS ORDERED: PHARMACY GLYCEMIC MGMT CONSULT PRN (13:55)
[2024-07-14] MEDS ORDERED: SOD PHOSPHATE/SOD BIPHOSPHATE ENEMA 132 ML BTL PR PRN (13:55)
[2024-07-14] MEDS ORDERED: HYDROmorphone INJ 0.5 MG/0.5 ML SYR IV PRN (13:55)
[2024-07-14] MEDS ORDERED: LORazepam 0.5 MG TAB PO PRN (13:55)
[2024-07-14] MEDS ORDERED: DO NOT ADMINISTER PNEUMOCOCCAL VACCINE PRN (13:55)
[2024-07-14] MEDS ORDERED: PROMETHAZINE 12.5 MG/50.5 ML BAG IV PRN (13:55)
[2024-07-14] MEDS ORDERED: bisacodyL 10 MG SUPP PR PRN (13:55)
--- NOTE | 2024-07-14 14:41 | Anesthesiology Progress Note ---
Date of Service July 14, 2024 Anesthesia Post Procedure Vital Signs Vital Signs: Temp Pulse Pulse Pulse Resp BP Pulse Ox 07/14/24 14:20 70 18 126/63 100 07/14/24 13:50 36.8 C 68 14 105/61 97 07/14/24 13:40 57 L 12 101/55 L 93 07/14/24 13:25 36.6 C 60 16 103/68 93 07/14/24 13:15 64 15 104/60 95 07/14/24 13:05 58 L 12 99/55 L 95 07/14/24 12:55 55 L 13 121/53 L 96 07/14/24 12:45 58 L 16 135/47 L 98 07/14/24 12:35 68 13 109/65 96 07/14/24 12:25 56 L 16 119/66 95 07/14/24 12:15 70 16 120/66 100 07/14/24 12:05 36.1 C L 66 10 L 134/88 98 07/14/24 07:18 36.8 C 66 20 147/73 H 97 O2 Del Method O2 Flow Rate 07/14/24 14:20 Nasal Cannula 2 07/14/24 13:50 Nasal Cannula 2 07/14/24 13:40 Nasal Cannula 2 07/14/24 13:25 Nasal Cannula 2 07/14/24 13:15 Nasal Cannula 2 07/14/24 13:05 Nasal Cannula 2 07/14/24 12:55 Nasal Cannula 2 07/14/24 12:45 Nasal Cannula 2 07/14/24 12:35 Oxymask 3 07/14/24 12:25 Oxymask 3 07/14/24 12:15 Oxymask 6 07/14/24 12:05 Oxymask 6 07/14/24 07:18 Room Air Pain Intensity Lower Back: Pain Intensity: 9 Transfer of Care Handoff Completed per policy Notes Mental Status: alert / awake / arousable and participated in evaluation Patient Amnestic to Procedure: Yes Nausea / Vomiting: adequately controlled Pain: adequately controlled Airway Patency, RR, SpO2: stable & adequate BP & HR: stable & adequate Hydration State: stable & adequate Anesthetic Complications: no major complications apparent and Pt Satisfied with anesthetic care
[2024-07-14] MEDS: INSULIN ASPART PER UNIT CHARGE SC SCH (14:57)
--- NOTE | 2024-07-14 15:17 | Pharmacy Report ---
Pharmacy Glycemic Short Note 2 - Date of Service July 14, 2024 - Glycemic Short BSG Results (Last 24 hours): 07/14/24 07:17 POC Glucose 118 H OUTPATIENT ANTIDIABETIC REGIMEN: * metformin 500mg QAM * HbA1c 6.1% (06/30/24) ASSESSMENT: * Ninfa is a 73 year old female admitted status post lumbar decompression with a history of prediabetes. Pharmacy has been consulted to assist with glycemic management while inpatient. * Preoperative BSG this AM within goal range, will initate basal scale with dinner if BSGs elevated * NovoLog initiated at a weight based stress of 2 PLAN FOR INPATIENT GLYCEMIC CONTROL: * Hold outpatient oral diabetes medications * Basal insulin * Lantus 0-15 units SQ QDD x1 (if BSG greater than 180mg/dL) * Bolus insulin * NovoLog per scale ACHS or Q6hrs while NPO * Goal Range: Low 110 mg/dL - High 140 mg/dL * Correction Factor: 25 mg/dL/unit * Nutritional / Prandial insulin per carb ratio of 1 unit per 8 grams CHO consumed
--- NOTE | 2024-07-14 15:53 | Hospitalist Consultation ---
Date of Consultation July 14, 2024 Assessment & Plan (1) Multilevel lumbosacral spondylosis with radiculopathy: (2) HTN (hypertension): (3) Hypothyroidism: (4) Sleep apnea: (5) Prediabetes: (6) Hypoxia: Plan Ninfa is a pleasant 73-year-old female with PMH of hypertension, hyperlipidemia, hypothyroidism, GERD, prediabetes, sleep apnea. She presented for elective L3- L5 decompression and fusion with Dr. Gudino on 07/14/24. #Lumbosacral spondylosis with radiculopathy S/p L3-L5 decompression and fusion with spinal cord monitoring with Dr. Gudino on 07/14/2024. EBL 350 cc. Pain regimen, activity level, DVT prophylaxis, discharge planning per primary t eam CBC/BMP AM labs #Hypoxia Currently on 2 L O2 via NC with SpO2 98% - does not wear supplemental O2 at baseline Suspect multifactorial between anesthesia and postop pain medications Continue incentive spirometer Wean off supplemental O2 as able #Hypertension/hyperlipidemia Chronic, stable Continue atorvastatin 20 mg daily, carvedilol 12.5 mg BID, valsartan/HCTZ 320- 12.5 mg, spironolactone 25 mg daily #Hypothyroidism Postoperative hypothyroidism s/p total thyroidectomy in 1997 Continue Synthroid 100 mcg daily #Sleep apnea Continue CPAP HS #Prediabetes Most recent A1c 6.1% June 2024 Takes Metformin 500 mg QAM at home Pharmacy glycemic consult managing SSI while inpatient #Depression/Anxiety Continue Lexapro 10 mg QAM, Lorazepam 0.5 mg q8h prn anxiety #GERD Continue pantoprazole 40 mg BID Code status: Full code Hospital medicine will continue to follow History of Present Illness Reason for Consultation: medical management Requesting Physician: Caleb Gudino DO Attending Physician: Caleb Gudnio DO History of Present Illness Ninfa is a pleasant 73-year-old female with PMH of hypertension, hyperlipidemia, hypothyroidism, GERD, prediabetes, sleep apnea. She presented for L3-L5 decompression and fusion with Dr. Gudino on 07/14/2024. Per review of operative report, EBL was listed as 350 cc, and there were patient's body habitus contributed to difficulty with positioning, exposure, and the procedure itself but otherwise no complications were noted. Per review of patient's vitals postop, she has been requiring supplemental oxygen currently on 2 L via NC with SpO2 98%; vitals otherwise stable. Patient reports that her pain is 6/10 at time of consult, localized to her lumbar spine. Denies radicular symptoms in LE bilaterally. She has not eaten since surgery due to feeling groggy and not having an appetite. Patient reports no recent change in medications. She does not use supplemental oxygen during the day at baseline. She does wear a CPAP at night. Allergies Allergy/AdvReac Type Severity Reaction Status Date / Time benzonatate Allergy Severe Anaphylaxis Verified 07/14/24 07:38 [From Flor Panchal] latex Allergy Severe blistering, Verified 07/14/24 07:38 rash Penicillins Allergy Severe hives, Verified 07/14/24 07:38 difficulty breathing chlorhexidine Allergy Intermediate Hives Verified 07/14/24 07:38 morphine AdvReac Intermediate Vomiting Verified 07/14/24 07:38 Home Medications Medication Instructions Recorded Confirmed Type aspirin 81 mg capsule 81 mg PO QAM 08/25/21 07/14/24 History calcium 500 mg tablet 500 mg PO QAM 08/25/21 07/14/24 History carvedilol 25 mg tablet (Coreg) 25 mg PO BID 08/25/21 07/14/24 History escitalopram oxalate 10 mg tablet 10 mg PO QAM 08/25/21 07/14/24 History (Lexapro) levothyroxine 100 mcg tablet 100 mcg PO QAM 08/25/21 07/14/24 History (Levoxyl) magnesium 500 mg tablet 500 mg PO QAM 08/25/21 07/14/24 History pantoprazole 40 mg tablet,delayed 40 mg PO BID 08/25/21 07/14/24 History release (Protonix) potassium 99 mg tablet 99 mg PO QAM 08/25/21 07/14/24 History spironolactone 25 mg tablet 25 mg PO QAM 08/25/21 07/14/24 History valsartan 320 1 tab PO QAM 08/25/21 07/14/24 History mg-hydrochlorothiazide 12.5 mg tablet (Diovan HCT) metformin 500 mg tablet 500 mg PO QAM 06/18/24 07/14/24 History atorvastatin 20 mg tablet (Lipitor) 20 mg PO QAM 06/30/24 07/14/24 History multivit with minerals-iron 18 1 tab PO QAM 06/30/24 07/14/24 History mg-folic ac 400 mcg-vit K 25 mcg tablet (Adults Multivitamin) tramadol 25 mg tablet 25 mg PO Q4H PRN Pain 06/30/24 07/14/24 History acetaminophen 500 mg tablet 1,000 mg PO Q6H PRN Pain 07/14/24 07/14/24 History Patient History Medical History (Updated 07/14/24 @ 17:52 by Demetrice Correia PA-C) History of blood transfusion (~1974) Prediabetes Sleep apnea CPAP compliant HTN (hypertension) controlled, stable per pt Hypothyroidism History of hyperthyroidism "had radiation tx" History of esophageal dilatation early Hiatal hernia Allergy to chlorhexidine Osteoarthritis GERD (gastroesophageal reflux disease) controlled, stable per pt Hearing deficit B/L FERNANDEZ Surgical History History of total right knee replacement Hx of detached retina repair bilat History of cataract surgery rt/lt History of D&C History of History of total abdominal hysterectomy and bilateral salpingo-oophorectomy History of cholecystectomy History of appendectomy History of carpal tunnel release of both wrists History of left knee replacement History of cervical spinal surgery 2009, ROM WNL, ACDF History of esophagogastroduodenoscopy (EGD) History of colonoscopy History of umbilical hernia repair History of thyroidectomy 1972 History of parathyroidectomy done with thyroidectomy History of cardiac catheterization ~2007 ([facility]) > no stents Family History Other No family history of adverse response to anesthesia Social History (System 01/25/22 @ 15:21 by Adamaris Lombardi) Smoking Status: Never smoker Second Hand Exposure: No; Do You Dip or Chew Tobacco: No; Tobacco Cessation Education Requested by Patient: No Hx Alcohol Use: Yes Alcohol type: wine Hx Substance Use: No Preferred Language: Marshallese Communication Ability: Effective Hairspring Adjuster Required: No Beliefs That Will Affect Care: None Current Living Situation: Spouse Other Information That Helps Us Care for You: No Feels Safe at Home: Yes Safety Concerns: Feels Safe At This Time Assistive Devices: CPAP, Glasses and Hearing Aid - Bilateral Review of Systems Review of Systems: All systems reviewed & are unremarkable except as noted in Subjective Physical Exam Physical Exam: General: No acute distress, nondiaphoretic, well-developed, well-nourished. Skin: The skin was without rashes, erythema, edema, or bruising. Cardiac: Regular rate and rhythm without murmurs gallops or rubs. Pulm: Clear to auscultation bilaterally without wheezes, rales or rhonchi. No retractions or accessory muscle use. Abdominal: Positive bowel sounds x 4. Soft, nontender, without masses or organomegaly. No guarding or rebound tenderness. Neuro: A&O x3. No focal neurological deficits. Results & Data Results & Data Vital Signs (Past 12 Hours) Vital Signs Temp Pulse Pulse Pulse Resp BP Pulse Ox 07/14/24 14:50 97.5 F L 67 14 115/67 99 07/14/24 14:20 70 18 126/63 100 07/14/24 13:50 07/14/24 13:50 98.2 F 68 14 105/61 97 07/14/24 13:40 57 L 12 101/55 L 93 07/14/24 13:25 97.9 F 60 16 103/68 93 07/14/24 13:15 64 15 104/60 95 07/14/24 13:05 58 L 12 99/55 L 95 07/14/24 12:55 55 L 13 121/53 L 96 07/14/24 12:45 58 L 16 135/47 L 98 07/14/24 12:35 68 13 109/65 96 07/14/24 12:25 56 L 16 119/66 95 07/14/24 12:15 70 16 120/66 100 07/14/24 12:05 97.0 F L 66 10 L 134/88 98 07/14/24 07:18 98.2 F 66 20 147/73 H 97 O2 Del Method O2 Flow Rate 07/14/24 14:50 Nasal Cannula 2 07/14/24 14:20 Nasal Cannula 2 07/14/24 13:50 Nasal Cannula 2 07/14/24 13:50 Nasal Cannula 2 07/14/24 13:40 Nasal Cannula 2 07/14/24 13:25 Nasal Cannula 2 07/14/24 13:15 Nasal Cannula 2 07/14/24 13:05 Nasal Cannula 2 07/14/24 12:55 Nasal Cannula 2 07/14/24 12:45 Nasal Cannula 2 07/14/24 12:35 Oxymask 3 07/14/24 12:25 Oxymask 3 07/14/24 12:15 Oxymask 6 07/14/24 12:05 Oxymask 6 07/14/24 07:18 Room Air PG Care Time/CCT Total # of Minutes Spent Total Time Spent with Patient: Total time spent is greater than 50% in coordination of care (as documented) at patient's floor/unit and/or counseling patient: Coding Level of Care Code 40712 IN/OBS CONSULT LVL 3,45M Diagnoses Multilevel lumbosacral spondylosis with radiculopathy M47.27 HTN (hypertension) I10 Hypothyroidism E03.9 Sleep apnea G47.30 Prediabetes R73.03 Hypoxia R09.02
[2024-07-14] MEDS: traMADol HCL 50 MG TABLET PO PRN (17:08)
[2024-07-14] MEDS: LANTUS PER UNIT CHARGE SC SCH (17:09)
[2024-07-14] MEDS: CLINDAMYCIN/D5W 600 MG/50 ML BAG IV SCH (17:51)
[2024-07-14] MEDS: DOCUSATE SODIUM/SENNA 50/8.6MG TAB PO SCH (20:42)
[2024-07-14] MEDS: carvediloL 25 MG TAB PO SCH (20:43)
[2024-07-14] MEDS: oxyCODONE HCL IR 5 MG TAB (IMMEDIATE RELEASE) PO PRN (20:43)
[2024-07-14] MEDS: PANTOprazole 40 MG TAB PO SCH (20:43)
[2024-07-15] MEDS: LEVOTHYROXINE SODIUM 100 MCG TABLET PO SCH (05:41)
[2024-07-15] MEDS: POLYETHYLENE (MIRALAX) 17 GM PACK PO SCH (05:41)
[2024-07-15 06:21] LABS: Basophils # (auto) 0.01 K/uL (0.00-0.20); Basophils % (auto) 0.1 %; Hematocrit (blood only) 30.6 % (37.0-47.0); Hemoglobin 9.9 g/dl (12.0-16.0); Immature Granulocytes # (auto) 0.09 K/uL (0.01-0.20); Immature Granulocytes % (auto) 0.7 %; Lymphocytes # (auto) 0.94 K/uL (1.20-3.40); Lymphocytes % (auto) 7.4 %; Mean Corpuscular Hemoglobin 29.9 pg (25.0-34.0); Mean Corpuscular Hgb Conc 32.4 g/dL (32.0-36.0); Mean Corpuscular Volume 92.4 fL (80.0-100.0); Mean Platelet Volume 9.4 fL (9.4-12.4); Monocytes # (auto) 0.94 K/uL (0.11-0.59); Monocytes % (auto) 7.4 %; Neutrophils % (auto) 84.4 %; Platelet Count 273 K/uL (130-400); RDW Coefficient of Variation 12.1 % (11.5-14.5); RDW Standard Deviation 41.3 fL (36.4-46.3); Red Blood Count 3.31 M/uL (4.20-5.40); White Blood Count 12.68 K/ul (4.8-10.8)
[2024-07-15 06:50] LABS: BUN Creatinine Ratio 18.1 (10-20); Calcium 8.4 mg/dl (8.6-10.3); Creatinine Clr Calc Pharmacy 53.3 ml/min; Potassium 4.3 mmol/L (3.5-5.1)
[2024-07-15] MEDS: SPIRONOLACTONE 25 MG TAB PO SCH (07:08)
[2024-07-15] MEDS: MAGNESIUM OXIDE 400 MG TAB PO SCH (07:09)
[2024-07-15] MEDS: ESCITALOPRAM OXALATE 10 MG TAB PO SCH (07:09)
[2024-07-15] MEDS: ATORVASTATIN 20 MG TAB PO SCH (07:09)
[2024-07-15] MEDS: CALCIUM CARBONATE 1250MG TAB PO SCH (07:09)
[2024-07-15] MEDS: ASPIRIN 81 MG ECTAB PO SCH (07:10)
[2024-07-15] MEDS: dexAMETHasone 6 MG in SYRINGE 0 ML IV SCH (07:13)
--- NOTE | 2024-07-15 07:55 | Hospitalist Progress Note ---
Date of Service July 15, 2024 Assessment & Plan (1) Multilevel lumbosacral spondylosis with radiculopathy: (2) HTN (hypertension): (3) Hypothyroidism: (4) Sleep apnea: (5) Prediabetes: (6) Hypoxia: Plan Ninfa is a pleasant 73-year-old female with PMH of hypertension, hyperlipidemia, hypothyroidism, GERD, prediabetes, sleep apnea. She presented for elective L3- L5 decompression and fusion with Dr. Gudino on 07/14/24. #Lumbosacral spondylosis with radiculopathy S/p L3-L5 decompression and fusion with spinal cord monitoring with Dr. Gudino on 07/14/2024. EBL 350 cc. Pain regimen, activity level, DVT prophylaxis, discharge planning per primary team acute blood loss anemia but not in need of transfusion #Hypoxia improved/resolved Suspect multifactorial between anesthesia and postop pain medications Continue incentive spirometer #Hypertension/hyperlipidemia Chronic, stable Continue atorvastatin 20 mg daily, carvedilol 12.5 mg BID, valsartan/HCTZ 320- 12.5 mg, spironolactone 25 mg daily #Hypothyroidism Postoperative hypothyroidism s/p total thyroidectomy in 1997 Continue Synthroid 100 mcg daily #Sleep apnea Continue CPAP HS #Prediabetes Most recent A1c 6.1% June 2024 Takes Metformin 500 mg QAM at home Pharmacy glycemic consult managing SSI while inpatient #Depression/Anxiety Continue Lexapro 10 mg QAM, Lorazepam 0.5 mg q8h prn anxiety #GERD Continue pantoprazole 40 mg BID Code status: Full code Hospital medicine will continue to follow Admission and Anticipated Discharge Date Admission Date: July 14, 2024 Subjective pt with continued improving pain, carmel drain in place did perfrom well with PT Physical Exam Physical Exam: cardiac exam regular lungs are clear Results & Data Results & Data Vital Signs (Past 12 Hours) Vital Signs Temp Pulse Resp BP BP Pulse Ox O2 Del Method 07/15/24 07:14 98.2 F 68 16 126/71 92 Room Air 07/15/24 03:26 98.4 F 61 16 120/65 98 Nasal Cannula 07/14/24 23:04 98.1 F 67 16 114/71 98 Nasal Cannula 07/14/24 20:45 Nasal Cannula O2 Flow Rate 07/15/24 07:14 07/15/24 03:26 2 07/14/24 23:04 2 07/14/24 20:45 2 PG Care Time/CCT Total # of Minutes Spent Total Time Spent with Patient: Total time spent is greater than 50% in coordination of care (as documented) at patient's floor/unit and/or counseling patient: Coding Level of Care Code 39892 SUB INP/OBS CARE 2/35MIN Diagnoses Multilevel lumbosacral spondylosis with radiculopathy M47.27 HTN (hypertension) I10 Hypothyroidism E03.9 Sleep apnea G47.30 Prediabetes R73.03 Hypoxia R09.02
[2024-07-15] MEDS ORDERED: NON-FORMULARY MEDICATION (Potassium 99 mg Tablet) PO SCH (09:00)
--- NOTE | 2024-07-15 09:35 | Orthopedic Progress Note ---
Date of Service July 15, 2024 Assessment & Plan (1) Multilevel lumbosacral spondylosis with radiculopathy: Plan: At this time we will continue physical therapy monitor GM output hopefully discharge home next few days. Admission and Anticipated Discharge Date Admission Date: July 14, 2024 Subjective Back pain is controlled leg symptoms improved Physical Exam Physical Exam: Patient is in bed at this time. Skin strength testing. Appears comfortable. Results & Data Vital Signs (Past 12 Hours) Vital Signs Temp Pulse Resp BP BP Pulse Ox O2 Del Method 07/15/24 07:15 Room Air 07/15/24 07:14 36.8 C 68 16 126/71 92 Room Air 07/15/24 03:26 36.9 C 61 16 120/65 98 Nasal Cannula 07/14/24 23:04 36.7 C 67 16 114/71 98 Nasal Cannula O2 Flow Rate 07/15/24 07:15 07/15/24 07:14 07/15/24 03:26 2 07/14/24 23:04 2 Queries Orthopedic Spine Obesity: Yes
[2024-07-15] MEDS: ACETAMINOPHEN 500 MG TAB PO PRN (12:09)
[2024-07-15] MEDS: VALSARTAN/HCTZ 320/12.5 MG TAB PO SCH (12:12)
[2024-07-16] MEDS: MAGNESIUM HYDROXIDE SUSP 30 ML UDC PO PRN (02:20)
--- NOTE | 2024-07-16 11:56 | Orthopedic Progress Note ---
Date of Service July 16, 2024 Assessment & Plan (1) Multilevel lumbosacral spondylosis with radiculopathy: Plan: This time we will continue physical therapy monitor her GM output anticipate discharge home possibly tomorrow. Admission and Anticipated Discharge Date Admission Date: July 14, 2024 Subjective Back pain controlled leg pain improved she is tolerating ambulation well. Struggling with stairs. Physical Exam Physical Exam: Patient in the chair at the bedside. Is good strength testing peers comfortable. Results & Data Vital Signs (Past 12 Hours) Vital Signs Temp Pulse Pulse Resp BP BP Pulse Ox 07/16/24 11:27 36.9 C 60 16 122/68 97 07/16/24 07:43 36.9 C 56 L 16 128/72 95 07/16/24 04:00 36.7 C 75 20 145/68 H 96 O2 Del Method 07/16/24 11:27 Room Air 07/16/24 07:43 Room Air 07/16/24 04:00 Room Air Queries Orthopedic Spine Acute Posthemorrhagic Anemia: Yes Obesity: Yes
--- NOTE | 2024-07-16 14:20 | Pharmacy Report ---
Pharmacy Glycemic Short Note 2 - Date of Service July 16, 2024 - Glycemic Short BSG Results (Last 24 hours): 07/15/24 07/15/24 07/16/24 16:38 20:22 07:48 POC Glucose 131 H 114 H 122 H 07/16/24 11:30 POC Glucose 125 H OUTPATIENT ANTIDIABETIC REGIMEN: * metformin 500mg QAM * HbA1c 6.1% (06/30/24) ASSESSMENT: 07/16 * BSGs have been well controlled without basal. [phone] mg/dL * Fasting this AM 122 mg/dL * Continue current novolog parameters, continues on dex 6 mg IV daily, last dose 07/17 AM 07/14 * Ninfa is a 73 year old female admitted status post lumbar decompression with a history of prediabetes. Pharmacy has been consulted to assist with glycemic management while inpatient. * Preoperative BSG this AM within goal range, will initate basal scale with dinner if BSGs elevated * NovoLog initiated at a weight based stress of 2 PLAN FOR INPATIENT GLYCEMIC CONTROL: * Hold outpatient oral diabetes medications * Basal insulin * hold * Bolus insulin * NovoLog per scale ACHS or Q6hrs while NPO * Goal Range: Low 110 mg/dL - High 140 mg/dL * Correction Factor: 25 mg/dL/unit * Nutritional / Prandial insulin per carb ratio of 1 unit per 8 grams CHO consumed
--- NOTE | 2024-07-16 16:48 | Hospitalist Progress Note ---
Date of Service July 16, 2024 Assessment & Plan (1) Multilevel lumbosacral spondylosis with radiculopathy: (2) HTN (hypertension): (3) Hypothyroidism: (4) Sleep apnea: (5) Prediabetes: (6) Hypoxia: Plan Ninfa is a pleasant 73-year-old female with PMH of hypertension, hyperlipidemia, hypothyroidism, GERD, prediabetes, sleep apnea. She presented for elective L3- L5 decompression and fusion with Dr. Gudino on 07/14/24. #Lumbosacral spondylosis with radiculopathy S/p L3-L5 decompression and fusion with spinal cord monitoring with Dr. Gudino on 07/14/2024. EBL 350 cc. Pain regimen, activity level, DVT prophylaxis, discharge planning per orthopedic spine surgery acute blood loss anemia but not in need of transfusion #Hypoxia improved/resolved #Hypertension/hyperlipidemia Chronic, stable Continue atorvastatin 20 mg daily, carvedilol 12.5 mg BID, valsartan/HCTZ 320- 12.5 mg, spironolactone 25 mg daily #Hypothyroidism Postoperative hypothyroidism s/p total thyroidectomy in 1997 Continue Synthroid 100 mcg daily #Sleep apnea Continue CPAP HS #Prediabetes Most recent A1c 6.1% June 2024 Takes Metformin 500 mg QAM at home Pharmacy glycemic consult managing SSI while inpatient #Depression/Anxiety Continue Lexapro 10 mg QAM, Lorazepam 0.5 mg q8h prn anxiety #GERD Continue pantoprazole 40 mg BID Code status: Full code Admission and Anticipated Discharge Date Admission Date: July 14, 2024 Subjective Patient having some pain post physical therapy she was premedicated. Patient's drain is still in place Dr. Guidno is electing to keep the patient for an additional day. Patient having no symptoms from her acute blood loss anemia postoperatively Physical Exam Physical Exam: cardiac exam regular lungs are clear Results & Data Results & Data Vital Signs (Past 12 Hours) Vital Signs Temp Pulse Pulse Resp BP Pulse Ox O2 Del Method 07/16/24 15:22 98.6 F 61 16 132/76 97 Room Air 07/16/24 11:27 98.4 F 60 16 122/68 97 Room Air 07/16/24 07:43 98.4 F 56 L 16 128/72 95 Room Air PG Care Time/CCT Total # of Minutes Spent Total Time Spent with Patient: Total time spent is greater than 50% in coordination of care (as documented) at patient's floor/unit and/or counseling patient: Coding Level of Care Code 92757 SUB INP/OBS CARE 2MIN Diagnoses Multilevel lumbosacral spondylosis with radiculopathy M47.27 HTN (hypertension) I10 Hypothyroidism E03.9 Sleep apnea G47.30 Prediabetes R73.03 Hypoxia R09.02
[2024-07-16 20:57] VITALS: RESP 18
[2024-07-17 07:57] VITALS: TEMP 98.6; O2SAT 95
--- NOTE | 2024-07-17 08:25 | Discharge Summary ---
Date of Service July 17, 2024 Admission HPI Per Admitting Provider This is a 73-year-old female who presents for chronic persistent back and bilateral leg pain and failing course of nonoperative care is here for surgical intervention. Principal Diagnosis Lumbar spondylosis with radiculopathy Discharge Data Allergies Allergy/AdvReac Type Severity Reaction Status Date / Time benzonatate Allergy Severe Anaphylaxis Verified 07/14/24 07:38 [From Flor [facility]anch[facility]] latex Allergy Severe blistering, Verified 07/14/24 07:38 rash Penicillins Allergy Severe hives, Verified 07/14/24 07:38 difficulty breathing chlorhexidine Allergy Intermediate Hives Verified 07/14/24 07:38 morphine AdvReac Intermediate Vomiting Verified 07/14/24 07:38 Consultations 07/14/24 13:55 Consult Hospitalist Routine Procedures Performed Operation Date: 07/14/24 10:05 Actual Procedures p L3-L5 Decompression and Fusion, Spinal Cord Monitoring(Not Applicable) - Caleb Gudino DO Ordered Studies 07/14/24 12:05 [place] lumbar spine 2-3V Routine Hospital Course (1) Multilevel lumbosacral spondylosis with radiculopathy: Patient underwent multilevel decompression fusion trial as well as taken orthopedic for postoperative. Post ablation progressed appropriately throughout her stay. Improved ambulation and strength. GM drain decreasing. Pain well- controlled. Subsidy discharged home. Discharge orders instructions from the chart for further review. Total Time Total Time Spent Total Time Spent (In Minutes): 20 minutes Discharge Plan Discharge Items Patient Disposition: Home - Self-Care Reason For Visit: Lumbar Disc Disease with Radiculopathy, Lumbar For Discharge Diagnosis: Lumbar spondylosis with radiculopathy Activity: As commented below Non-emergency contact: Primary Care Provider Call non-emergency contact if: you have any medication questions Follow-up/Referrals: Nury Martel MD [Primary Care Provider] - Diet: Regular Addtl Attending Provider Instructions: ACTIVITY RECOMMENDATIONS: SELF CARE INSTRUCTIONS AFTER THORACIC/LUMBAR FUSIONS 1. You may walk to your tolerance. It is good exercise for your legs and back. Expect some back and intermittent leg aches and pains. 2. You may perform "counter-top" level activities (make a sandwich, kushal with a project, etc.). 3. No bending or lifting of more than 10 pounds or back twisting of any nature (roll like a log when turning in bed). 4. You may ride in a car for 20-30 minutes at a time. No driving until after your first visit with your doctor. 5. Frequent changes of position and restricting sitting to 30 minutes at a time will help limit the amount of back spasms and stiffness you may experience. 6. You may discontinue the use of ambulatory aids (cane, crutches, etc.) once your strength and confidence allow. 7. You may chain mortiser operator the shower and let water strike your incision when you arrive home at least once daily. Do not take a tub bath, sit in a hot tub or go into a swimming pool until after your first recheck in the office. 8. You may resume previous diet. SPECIAL CARE INSTRUCTIONS: VERY IMPORTANT TO READ AND REVIEW A. Your surgical incision has been closed with a cosmetic suture under the skin that will dissolve in about 6 weeks. In 14 days, you can use a pair of clean scissors and cut the suture that is left outside of the skin at the ends of your incision. 1. The small skin tapes can be removed 7 days after surgery if they have not fallen off by that point. 2. You may keep the wound open to air as much as possible to promote healing after post-op day number 5 unless told otherwise by your doctor. 3. If you think the wound looks like it is becoming infected (redness or worsening drainage) and/or you are experiencing fever, chill or worsening back pain and muscle spasms, contact the office so that we may evaluate you as soon as possible. B. Complications are uncommon, but please contact us if you have any signs or symptoms of: 1. wound infection (fever higher than 102.5 degrees F, redness, separation of wound, drainage, or increasing pain from the incision) 2. blood clots in legs (pain, swelling, redness and warmth in legs) 3. urinary tract infection (fever higher than 102.5 degrees F, burning upon urination or increased frequency of urination) 4. nerve problems (inability to walk on your toes or heels, numbness, loss of bowel or bladder control) 5. any other symptoms that concern you C. Please call the office at if you have any concerns or questions about your operation or recovery. D. No smoking! Smoking drastically decreases the chance of a solid fusion. E. Do not take any anti-inflammatory medications (Indocin, Advil, Motrin, Aspirin, Naprosyn, etc.) as these may inhibit the chance of a solid fusion. Tylenol is okay to take for pain. MANAGING PAIN AFTER SPINAL SURGERY 1. Narcotic medication is intended for short-term use and will be provided for surgical pain. Surgical pain usually lasts for a period of 4-6 weeks. Narcotic medication includes Percocet, Vicodin, Darvocet, Tylenol #3 or Lortab. 2. Longer-term pain is more appropriately treated with non-narcotic medication such as Tylenol ES. 3. Muscle spasm is not appropriately treated with narcotics. Muscle relaxers such as Soma, Flexeril or Skelaxin can be used along with Tylenol ES. 4. Remember that we all live with some "aches and pains". This is not unusual or uncommon after an injury or as we get older. a. Back pain is expected and may include muscle spasms for 4 to 6 weeks after surgery. The pain should gradually improve. If the pain worsens for no apparent reason, please contact the office. b. Intermittent leg pain may also be experienced and should not be concerned about unless it worsens for no apparent reason. If so, please contact the office. 5. We will provide appropriate medication within the normal guidelines of their prescribed use. We will also be very cautious and aware of potential abuse and extended duration of patients' medication needs. a. Pain medications are for your comfort and to assist with sleep and rest so that the tissue can heal. They are not provided in order to return to normal activity and should not be used through the day. To do so or worsening pain at night can result from ongoing tissue damage and development of tolerance to the prescribed medicine. 6. Please allow 2-3 days to process refills. Prescriptions will not be mailed but must be picked up at the office. FOLLOW UP VISIT: Keep your scheduled follow-up appointment. Any questions, please call the office at . Pending Studies at Discharge: No Stand-Alone Forms: My [facility], Smoking Cessation Medications and DC Order Prescriptions: New tramadol 50 mg tablet 50 mg PO Q6H PRN (Reason: pain, moderate) Qty: 30 0RF oxycodone 5 mg tablet 5 mg PO Q6H PRN (Reason: pain) Qty: 30 0RF Continued carvedilol [Coreg] 25 mg Tablet 25 mg PO BID magnesium 500 mg Tablet 500 mg PO QAM calcium 500 mg Tablet 500 mg PO QAM spironolactone 25 mg Tablet 25 mg PO QAM levothyroxine [Levoxyl] 100 mcg Tablet 100 mcg PO QAM potassium 99 mg Tablet 99 mg PO QAM pantoprazole [Protonix] 40 mg Tablet,Delayed Release (Dr/Ec) 40 mg PO BID escitalopram oxalate [Lexapro] 10 mg Tablet 10 mg PO QAM valsartan-hydrochlorothiazide [Diovan HCT] 320-12.5 mg Tablet 1 tab PO QAM aspirin 81 mg Capsule 81 mg PO QAM metformin 500 mg Tablet 500 mg PO QAM Adults Multivitamin 18 mg iron-400 mcg-25 mcg Tablet 1 tab PO QAM atorvastatin [Lipitor] 20 mg Tablet 20 mg PO QAM tramadol 25 mg Tablet 25 mg PO Q4H PRN (Reason: Pain) acetaminophen 500 mg Tablet 1,000 mg PO Q6H PRN (Reason: Pain) Discharge Orders: Discharge Order (Routine); Ordered 07/17/24 Ordered By: Caleb Gudino Admission Data Admit Date/Time: 07/14/24 11:57 Attending Provider: Caleb Gudino Admit Provider: Caleb Gudino Primary Care Provider: Nury Martel Other Providers: Harshil Hoover
[2024-07-17 08:42] VITALS: BP 132/76; PULSE 60
[2024-07-17] MEDS: dexAMETHasone 1 MG TAB PO ONE (09:06)
== END 2024-07-17 11:11 | disposition home health service (06) | DRG 427 ==
LOC: ASU 07:11 → 3E 11:57